=== PATIENT | male | born 1975 | race Caucasian/White ===

== ENCOUNTER 2016-07-24 01:35 | Emergency (ER) | payer OTHER ==
[~2016-07-24] VITALS: Ht 172.7 cm; Wt 77.5 kg
[~2016-07-24 01:35] MED LIST: BACTDS PO; CLOT14.2 TP; RIFA300C3 PO
[2016-07-24 01:38] VITALS: Ht 172.7 cm; Wt 77.5 kg
[2016-07-24] MEDS ORDERED: IBUP-1542 PO (02:09)
[2016-07-24] MEDS ORDERED: CEPH-443 PO (02:09)
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
== END 2016-07-24 02:38 | disposition home or self-care (01) ==
LOC: FTE 01:35
DX: T23.222A Burn of second degree of single left finger (nail) except thumb, initial encounter (principal); L03.012 Cellulitis of left finger; F17.210 Nicotine dependence, cigarettes, uncomplicated; X58.XXXA Exposure to other specified factors, initial encounter; Y92.9 Unspecified place or not applicable
CPT/HCPCS: 99283

== ENCOUNTER 2016-07-26 05:27 | Emergency (ER) | payer OTHER ==
[~2016-07-26] VITALS: Ht 177.8 cm; Wt 77.5 kg
[~2016-07-26 05:27] MED LIST changes: +CEPH-443 PO; +IBUP-1542 PO
[2016-07-26 05:30] VITALS: Ht 177.8 cm; Wt 77.5 kg
[2016-07-26] MEDS ORDERED: CEFTRIAXONE 1 GM INJ IM ONE (06:30)
[2016-07-26] MEDS ORDERED: LIDOCAINE 1% (MDV) 20 ML INJ SC ONE (06:30)
[2016-07-26] MEDS ORDERED: DOXY100T20 PO (06:37)
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
== END 2016-07-26 06:46 | disposition home or self-care (01) ==
LOC: FTE 05:27
DX: L03.114 Cellulitis of left upper limb (principal); F17.210 Nicotine dependence, cigarettes, uncomplicated
CPT/HCPCS: J0696; Z7610; 96372

== ENCOUNTER → 2016-09-15 | Emergency (ER) | payer OTHER ==
[~2016-09-15] VITALS: Ht 175.3 cm; Wt 75.5 kg
[~2016-09-15] MED LIST changes: +BEN25 PO; +DOXY100T20 PO; +KEN1O TOP
[2016-09-15 02:02] VITALS: Ht 175.3 cm; Wt 75.5 kg
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
[2016-09-15 03:08] VITALS: BP 123/86; PULSE 70; RESP 20; TEMP 97.6
== END | disposition home or self-care (01) ==
LOC: FTE 01:58
DX: L40.9 Psoriasis, unspecified (principal); F17.210 Nicotine dependence, cigarettes, uncomplicated
CPT/HCPCS: 99283

== ENCOUNTER 2018-03-04 00:36 | Emergency (ER) | END 2018-03-04 01:51 | disposition home or self-care (01) ==